=== PATIENT | male | born 1995 | race Caucasian/White ===

== ENCOUNTER 2017-10-18 20:02 | Observation (INO) | payer BC ==
[2017-10-18 20:06] VITALS: BP 151/96; PULSE 89; RESP 16; TEMP 97.9; O2SAT 100
[2017-10-18] MEDS ORDERED: SODIUM CHLOR 0.9% 1000 ML INJ 1,000 ML IV SCH ×2 (23:00→23:04)
[2017-10-18] MEDS ORDERED: SODIUM CHLORIDE 0.9% FLUSH 10 ML FLUSH IV FLUSH PRN ×2 (23:00→23:15)
[2017-10-18] MEDS ORDERED: FAMOTIDINE 20 MG/2 ML VIAL IV PUSH ONE (23:00)
--- NOTE | 2017-10-18 23:11 | PD ---
HPI Chief Complaint: ENT Complaint Time Seen by Provider: 22:38 Travel History International Travel<30 days: No Contact w/Intl Traveler<30days: No Traveled to known affect area: No History of Present Illness HPI 21-year-old male complains of difficulty in swallowing. Patient has history of esophageal stricture in 2016. Patient was not admitted to a hospital in [place] and had endoscopy done with esophageal dilatation. Patient states that he has progressive trouble swallowing since then. Patient states that he was not eating this evening and started having choking patient sensation in the back of the throat. Patient states that he has been unable to swallow any liquid or anything since then. Patient states that he has been spitting up saliva since then. Patient denies any chest pain or shortness of breath. Patient denies any medical problem. Patient states that he is not on any routine medication. PFSH Past Medical History Medical other: Yes (esophageal stricture) Tetanus Vaccination: Unknown Influenza Vaccination: Yes Past Surgical History Other Surgery: Yes (esophageal dilation 2016) Social History Alcohol Use: No Tobacco Use: No Substance Use: No Allergies-Medications (Allergen,Severity, Reaction): Coded Allergies: No Known Allergies (Unverified , 10/18/17) Reported Meds & Prescriptions Reported Meds & Active Scripts Active No Active Prescriptions or Reported Medications Review of Systems General / Constitutional: No: Fever Eyes: No: Visual changes HENT: No: Headaches Cardiovascular: No: Chest Pain or Discomfort Respiratory: No: Shortness of Breath Gastrointestinal: No: Abdominal Pain Genitourinary: No: Dysuria Musculoskeletal: No: Pain Skin: No Rash Neurologic: No: Weakness Psychiatric: No: Depression Endocrine: No: Polydipsia Hematologic/Lymphatic: No: Easy Bruising Physical Exam Narrative GENERAL: Well-nourished, well-developed patient. SKIN: Focused skin assessment warm/dry. HEAD: Normocephalic. EYES: No scleral icterus. No injection or drainage. NECK: Supple, trachea midline. No JVD or lymphadenopathy. CARDIOVASCULAR: Regular rate and rhythm without murmurs, gallops, or rubs. RESPIRATORY: Breath sounds equal bilaterally. No accessory muscle use. GASTROINTESTINAL: Abdomen soft, non-tender, nondistended. MUSCULOSKELETAL: No cyanosis, or edema. BACK: Nontender without obvious deformity. No CVA tenderness. Neurologic exam normal. Data Data Last Documented VS Vital Signs Date Time Temp Pulse Resp B/P (MAP) Pulse Ox O2 Delivery O2 Flow Rate FiO2 10/18/17 20:52 20 10/18/17 20:06 97.9 89 151/96 (114) 100 MDM Medical Decision Making Medical Screen Exam Complete: Yes Emergency Medical Condition: Yes Differential Diagnosis Differential diagnosis including esophageal stricture, esophageal obstruction. Narrative Course 21-year-old male with complaint of unable to swallow. History of esophageal stricture that required esophageal dilatation in the past. Normal saline solution 1 25 cc an hour. N.p.o. I spoke with school photographer on-call Dr. Valentin. Patient required endoscopy in a.m. Patient will be admitted to the medical service. Pepcid 20 mg IV given. Diagnosis Primary Impression: Acute esophageal obstruction Admitting Information Admitting Physician Requests: Observation Scripts No Active Prescriptions or Reported Meds José Antonio Romero MD Oct 18, 2017 23:11
[2017-10-18] MEDS ORDERED: NALOXONE HCL 0.4 MG/ML AMP IV PUSH PRN (23:15)
[2017-10-18 23:23] LABS: AUTOMATED NEUTROPHIL # 3.9 TH/MM3 (1.8-7.7); BASOPHIL % 0.7 % (0.0-2.0); EOSINOPHIL # 0.5 TH/MM3 (0-0.4); EOSINOPHIL % 7.1 % (0.0-4.0); HEMATOCRIT 44.1 % (39.0-51.0); HEMOGLOBIN 15.5 GM/DL (13.0-17.0); LYMPH % 30.3 % (9.0-44.0); LYMPHOCYTE # 2.2 TH/MM3 (1.0-4.8); MEAN CELL VOLUME 84.5 FL (80.0-100.0); MEAN CORPUSCULAR HEMOGLOBIN 29.6 PG (27.0-34.0); MEAN CORPUSCULAR HGB CONC 35.1 % (32.0-36.0); MEAN PLATELET VOLUME 8.4 FL (7.0-11.0); MONO % 7.2 % (0.0-8.0); MONOCYTE # 0.5 TH/MM3 (0-0.9); NEUT % 54.7 % (16.0-70.0); PLATELET COUNT 242 TH/MM3 (150-450); RED BLOOD COUNT 5.23 MIL/MM3 (4.50-5.90); RED CELL DISTRIBUTION WIDTH 12.8 % (11.6-17.2); WHITE BLOOD COUNT 7.2 TH/MM3 (4.0-11.0)
[2017-10-18 23:40] LABS: BICARBONATE 29.6 MEQ/L (21.0-32.0); CALCIUM 9.1 MG/DL (8.5-10.1); CREATININE 1.15 MG/DL (0.60-1.30)
--- NOTE | 2017-10-18 23:59 | HHI.HP ---
HPI Service [facility] Primary Care Physician No Primary Care Physician Admission Diagnosis Esophageal obstruction Diagnoses: Chief Complaint: Difficulty swallowing Travel History International Travel<30 Days: No Contact w/Intl Traveler <30 Da: No Traveled to Known Affected Are: No History of Present Illness 21-year-old male with a history of esophageal strictures presented to the ED with complaints of difficulty swallowing. Patient states he was out eating dinner and after he was done eating he had difficulty swallowing with tightening in his throat with associated shortness of breath. He states it felt like something was stuck in his throat and the sensation does not resolve with drinking liquids. 2 years ago he underwent an EGD for esophageal dilation and states this episode was a lot worse. He denies coughing while eating. He currently denies any pain, states she just feels as if there is something stuck in his throat. Denies any chest pain, fever or chills. Review of Systems Except as stated in HPI: all other systems reviewed are Neg Past Family Social History Past Medical History Patient denies any medical history Past Surgical History Esophageal dilation 2015 Reported Medications Reported Meds & Active Scripts Active No Active Prescriptions or Reported Medications Allergies: Coded Allergies: No Known Allergies (Unverified , 10/18/17) Active Ordered Medications Current Medications Medications (Trade) Dose Ordered Sig/Lizbeth Route Start Time Stop Time Status Last Admin Sodium Chloride 1,000 ml @ 100 mls/hr Q10H IV 10/18/17 23:04 10/18/17 23:21 (NS Flush) 2 ml UNSCH PRN IV FLUSH 10/18/17 23:15 (NS Flush) 2 ml BID IV FLUSH 10/19/17 09:00 (Narcan Inj) 0.4 mg UNSCH PRN IV PUSH 10/18/17 23:15 Family History Patient denies any family history no history of heart disease or cancer Social History Patient denies any tobacco, alcohol or illicit drug use Physical Exam Vital Signs Vital Signs Date Time Temp Pulse Resp B/P (MAP) Pulse Ox O2 Delivery O2 Flow Rate FiO2 10/18/17 20:52 20 1/16/18 20:06 97.9 89 16 151/96 114 100 Physical Exam GENERAL: This is a well-nourished, well-developed patient, in no apparent distress. SKIN: No rashes, ecchymoses or lesions. Cool and dry. HEAD: Atraumatic. Normocephalic. EYES: Pupils equal round and reactive. Extraocular motions intact. ENT: Nose without bleeding, purulent drainage or septal hematoma. Airway patent. NECK: Trachea midline. No JVD or lymphadenopathy. CARDIOVASCULAR: Regular rate and rhythm without murmurs, gallops, or rubs. RESPIRATORY: Clear to auscultation. Breath sounds equal bilaterally. No wheezes , rales, or rhonchi. GASTROINTESTINAL: Abdomen soft, non-tender, nondistended. MUSCULOSKELETAL: Extremities without clubbing, cyanosis, or edema. No calf tenderness. NEUROLOGICAL: Awake and alert. Motor and sensory grossly within normal limits. Normal speech. Laboratory Laboratory Tests Test 10/18/17 23:00 White Blood Count 7.2 Red Blood Count 5.23 Hemoglobin 15.5 Hematocrit 44.1 Mean Corpuscular Volume 84.5 Mean Corpuscular Hemoglobin 29.6 Mean Corpuscular Hemoglobin Concent 35.1 Red Cell Distribution Width 12.8 Platelet Count 242 Mean Platelet Volume 8.4 Neutrophils (%) (Auto) 54.7 Lymphocytes (%) (Auto) 30.3 Monocytes (%) (Auto) 7.2 Eosinophils (%) (Auto) 7.1 Basophils (%) (Auto) 0.7 Neutrophils # (Auto) 3.9 Lymphocytes # (Auto) 2.2 Monocytes # (Auto) 0.5 Eosinophils # (Auto) 0.5 Basophils # (Auto) 0.0 CBC Comment DIFF FINAL Differential Comment Blood Urea Nitrogen 11 Creatinine 1.15 Random Glucose 70 Calcium Level 9.1 Sodium Level 141 Potassium Level 3.6 Chloride Level 106 Carbon Dioxide Level 29.6 Anion Gap 5 Estimat Glomerular Filtration Rate 79 Result Diagram: 10/18/17229910/18/172299 Caprini VTE Risk Assessment Caprini VTE Risk Assessment: No/Low Risk (score <= 1) Caprini Risk Assessment Model Point Value = 1 Point Value = 2 Point Value = 3 Point Value = 5 Age 41-60 Minor surgery BMI > 25 kg/m2 Swollen legs Varicose veins or History of unexplained or recurrent spontaneous Oral contraceptives or hormone replacement Sepsis (< 1 month) Serious lung disease, including pneumonia (< 1 month) Abnormal pulmonary function Acute myocardial infarction Congestive heart failure (< 1 month) History of inflammatory bowel disease Medical patient at bed rest Age 61-74 Arthroscopic surgery Major open surgery (> 45 min) Laparoscopic surgery (> 45 min) Malignancy Confined to bed (> 72 hours) Immobilizing plaster cast Central venous access Age >= 75 History of VTE Family history of VTE Factor V Leiden Prothrombin [id number] Lupus anticoagulant Anticardiolipin antibodies Elevated serum homocysteine Heparin-induced thrombocytopenia Other congenital or acquired thrombophilia Stroke (< 1 month) Elective arthroplasty Hip, pelvis, or leg fracture Acute spinal cord injury (< 1 month) Prophylaxis Regimen Total Risk Factor Score Risk Level Prophylaxis Regimen 0-1 Low Early ambulation 2 Moderate Order ONE of the following: *Sequential Compression Device (SCD) *Heparin 5000 units SQ BID 3-4 Higher Order ONE of the following medications: *Heparin 5000 units SQ TID *Enoxaparin/Lovenox 40 mg SQ daily (WT < 150 kg, CrCl > 30 mL/min) *Enoxaparin/Lovenox 30 mg SQ daily (WT < 150 kg, CrCl > 10-29 mL/min) *Enoxaparin/Lovenox 30 mg SQ BID (WT < 150 kg, CrCl > 30 mL/min) AND/OR *Sequential Compression Device (SCD) 5 or more Highest Order ONE of the following medications: *Heparin 5000 units SQ TID (Preferred with Epidurals) *Enoxaparin/Lovenox 40 mg SQ daily (WT < 150 kg, CrCl > 30 mL/min) *Enoxaparin/Lovenox 30 mg SQ daily (WT < 150 kg, CrCl > 10-29 mL/min) *Enoxaparin/Lovenox 30 mg SQ BID (WT < 150 kg, CrCl > 30 mL/min) AND *Sequential Compression Device (SCD) Assessment and Plan Problem List: (1) Acute esophageal obstruction ICD Code: K22.2 - Esophageal obstruction Status: Acute Assessment and Plan 21-year-old male with a history of esophageal strictures presented to the ED with complaints of difficulty swallowing. Acute esophageal obstruction, possible esophageal stricture -Consult gastroenterology, EGD planned for a.m. -Nothing by mouth after midnight -IVF for hydration -Pepcid IV given DVT prophylaxis: SCDs Discussed Condition With Patient EveliaArleth toribio KATE Oct 18, 2017 23:59
[2017-10-19 04:14] VITALS: BP 108/59; PULSE 79; RESP 16; O2SAT 99
[2017-10-19 08:24] VITALS: PULSE 72; RESP 15; O2SAT 98
[2017-10-19] MEDS ORDERED: SODIUM CHLORIDE 0.9% FLUSH 10 ML FLUSH IV FLUSH SCH (09:00)
--- NOTE | 2017-10-19 09:29 | PD.CONS ---
HPI History of Present Illness This is a 21 year old who presented to the emergency room on 10/18/17 with dysphagia. Onset of symptoms approximately 2 weeks ago, the patient also had an episode while eating at [employer] with his of choking. Patient states that he begin having increased secretions and shortness of breath and felt like food was stuck in the esophagus. He came to the emergency room immediately for evaluation. His choking sensation symptoms finally subsided; denies any current nausea vomiting diarrhea or constipation. He states that he had the same dysphagia episodes approximately 2 years ago and had to have his esophagus dilated. He states that his father also has a history of the swelling issues. (Kamla Miller) [facility] Past Medical History Patient denies any medical history Dysphagia Past Surgical History Esophageal dilation 2015 (Kamla Miller) Coded Allergies: No Known Allergies (Unverified , 10/18/17) Medications Administered Medications Medications (Trade) Dose Ordered Sig/Lizbeth Route PRN Reason Start Time Stop Time Status Last Admin Dose Admin Sodium Chloride 1,000 ml @ 100 mls/hr Q10H IV 10/18/17 23:04 10/18/17 23:21 Family History Patient denies any family history no history of heart disease or cancer Social History Patient denies any tobacco, alcohol or illicit drug use (Kamla Miller) Review of Systems Gastrointestinal: COMPLAINS OF: Difficulty Swallowing (Kamla Miller) GI Exam Vitals I&O Vital Signs Date Time Temp Pulse Resp B/P (MAP) Pulse Ox O2 Delivery O2 Flow Rate FiO2 10/19/17 09:00 10/19/17 08:24 72 15 98 Room Air 10/19/17 04:14 79 16 108/59 (75) 99 10/18/17 20:52 20 10/18/17 20:06 97.9 89 16 151/96 (114) 100 Laboratory Test 10/18/17 23:00 White Blood Count 7.2 TH/MM3 Red Blood Count 5.23 MIL/MM3 Hemoglobin 15.5 GM/DL Hematocrit 44.1 % Mean Corpuscular Volume 84.5 FL Mean Corpuscular Hemoglobin 29.6 PG Mean Corpuscular Hemoglobin Concent 35.1 % Red Cell Distribution Width 12.8 % Platelet Count 242 TH/MM3 Mean Platelet Volume 8.4 FL Neutrophils (%) (Auto) 54.7 % Lymphocytes (%) (Auto) 30.3 % Monocytes (%) (Auto) 7.2 % Eosinophils (%) (Auto) 7.1 % Basophils (%) (Auto) 0.7 % Neutrophils # (Auto) 3.9 TH/MM3 Lymphocytes # (Auto) 2.2 TH/MM3 Monocytes # (Auto) 0.5 TH/MM3 Eosinophils # (Auto) 0.5 TH/MM3 Basophils # (Auto) 0.0 TH/MM3 CBC Comment DIFF FINAL Differential Comment Blood Urea Nitrogen 11 MG/DL Creatinine 1.15 MG/DL Random Glucose 70 MG/DL Calcium Level 9.1 MG/DL Sodium Level 141 MEQ/L Potassium Level 3.6 MEQ/L Chloride Level 106 MEQ/L Carbon Dioxide Level 29.6 MEQ/L Anion Gap 5 MEQ/L Estimat Glomerular Filtration Rate 79 ML/MIN Physical Examination HEENT: Pupils round and reactive to light; normocephalic; atraumatic; no jaundice. Oral cavity clear now NECK: Neck is supple, no JVD, no lymphadenopathy. CHEST: Chest is clear to auscultation and percussion. CARDIAC: Regular rate and rhythm with no murmur gallop or rubs. ABDOMEN: Soft, nondistended, nontender; no hepatosplenomegaly; bowel sounds are present in all four quadrants. EXTREMITIES: No clubbing, cyanosis, or edema. SKIN: Normal; no rash; no jaundice. STOVE CLEANER: No focal deficits; alert and oriented times three., Speech is clear (Kamla Miller) Assessment and Plan Plan Dysphagia, acute onset choking sensation while eating at a restaurant within the past 48 hours. Plan EGD this a.m., consent Patient has been nothing by mouth at midnight No blood thinners Monitor labs Monitor any symptoms of choking Plan of care has been discussed with Dr. Valentin, and this note was written on his behalf (Kamla Miller) Physician Comments Patient seen and examined Agree with above Continue with current supportive care Plan for an EGD (Eliceo Valentin MD) Kamla Miller Oct 19, 2017 09:29 Eliceo Valentin MD Oct 19, 2017 10:35
[2017-10-19] MEDS ORDERED: LIDOCAINE HCL 1% PF 5 ML SYRINGE OTHER ONE (09:53)
[2017-10-19] MEDS ORDERED: SUCCINYLCHOLINE CHLORIDE 100 MG/5 ML SYRINGE IV PUSH ONE (09:53)
[2017-10-19] MEDS ORDERED: GLYCOPYRROLATE 1 MG/5 ML SYRINGE IV PUSH ONE (09:53)
[2017-10-19] MEDS ORDERED: PROPOFOL 200 MG/20 ML AMP IV ONE (09:53)
[2017-10-19 10:22] VITALS: BP 125/68; PULSE 81; RESP 16; TEMP 97.9; O2SAT 98
--- NOTE | 2017-10-19 10:37 | PD.PROCEDR ---
GI Procedure PROCEDURE PERFORMED EGD with biopsy INDICATION FOR PROCEDURE Dysphagia and possible food bolus impaction PROCEDURE: The procedure, risks and benefits were discussed with Mr. West and informed consent was obtained. Anesthesia sedated him with Diprivan. He was placed in the left lateral decubitus position. EGD: The Pentax videoscope was introduced through the oropharynx and advanced to the second portion of the duodenum under direct visualization. Retroflexion was performed in the stomach. FINDINGS: The esophagus there was a mild streaky erythematous distal then of the esophagus there were also noted rings and furrows possibly suggestive of eosinophilic esophagitis therefore biopsies were taken from the esophagus The stomach there was some punctate erythema in the antrum but no ulcerations no erosions no blood or bleeding the rest of the stomach was unremarkable antral biopsies were taken further evaluation The duodenum this was normal ESTIMATED BLOOD LOSS: None SPECIMENS REMOVED: Esophageal and gastric biopsies COMPLICATIONS: None IMPRESSION: Esophagitis Gastritis PLAN: Await biopsies Follow-up in clinic Chew food well Okay for discharge from a GI standpoint Eliceo Valentin MD Oct 19, 2017 10:37
--- NOTE | 2017-10-19 11:17 | HHI.PR ---
Subjective Remarks Went for EGD. With gastritis and esophagitis. Cleared by GI for discharge. Objective Vitals Vital Signs Date Time Temp Pulse Resp B/P (MAP) Pulse Ox O2 Delivery O2 Flow Rate FiO2 10/19/17 10:22 97.9 81 16 125/68 (87) 98 10/19/17 09:00 10/19/17 08:24 72 15 98 Room Air 10/19/17 04:14 79 16 108/59 (75) 99 10/18/17 20:52 20 10/18/17 20:06 97.9 89 16 151/96 (114) 100 I/O 10/18/17 10/18/17 10/18/17 10/19/17 10/19/17 10/19/17 07:00 15:00 23:00 07:00 15:00 23:00 Intake Total 150 ml Balance 150 ml Other 150 ml Result Diagram: 10/18/17 2300 10/18/17 2300 Objective Remarks GENERAL: This is a well-nourished, well-developed patient, in no apparent distress. CARDIOVASCULAR: Regular rate and rhythm without murmurs, gallops, or rubs. RESPIRATORY: Clear to auscultation. Breath sounds equal bilaterally. No wheezes , rales, or rhonchi. GASTROINTESTINAL: Abdomen soft, non-tender, nondistended. MUSCULOSKELETAL: Extremities without clubbing, cyanosis, or edema. No calf tenderness. A/P Problem List: (1) Acute esophageal obstruction ICD Code: K22.2 - Esophageal obstruction Status: Acute Assessment and Plan 21-year-old male with a history of esophageal strictures presented to the ED with complaints of difficulty swallowing. Acute esophageal obstruction Consult gastroenterology, EGD planned for a.m. S/P EGD by Dr. Palomino with Esophagitis, Gastritis Chew food well Okay for discharge from a GI standpoint patient follow-up with GI DVT prophylaxis: SCDs Discussed Condition With Patient, nurse Discharge Planning DC home in stable condition to follow up as OP with PCP and consultants Activity ad declan as tolerated Diet regular as tolerated Meds per med reconciliations Danita Yang MD Oct 19, 2017 11:17
[2017-10-19] MEDS ORDERED: SODIUM CHLORID 0.9% 500 ML IV PRN (11:30)
[2017-10-19] MEDS ORDERED: METOPROLOL TARTRATE 25 MG TAB PO PRN (11:30)
[2017-10-19] MEDS ORDERED: LACTATED RINGER'S 1000 ML IV PRN (11:30)
[2017-10-19] MEDS ORDERED: POVIDONE IODINE 5% (ANTISEPSIS KIT) 4 APPLICATIONS EACH NARE PRN (11:30)
[2017-10-19] MEDS ORDERED: CHLORHEXIDINE GLUCONATE 2 % 1 PACK (2 CLOTHS) TOPICAL PRN (11:30)
== END 2017-10-19 10:47 | disposition home or self-care (01) ==
LOC: NEPD 20:02 → NEDA 23:13 → NEDH 10-19 03:13 → HPAC 10-19 09:02
PROVIDERS: ADMIT Hospitalist; ATTEND Hospitalist
DX: K22.2 Esophageal obstruction (principal); K20.9 Esophagitis, unspecified; K29.70 Gastritis, unspecified, without bleeding
CPT/HCPCS: 00731; 43239; 80048; 85025; 88305; 88312; 96374; 99285; G0378; J0330; J7030